=== PATIENT | male | born 1960 ===

== ENCOUNTER 2024-08-26 02:03 | Emergency (ER) | payer BC, OTHER ==
[2024-08-26 03:04] LABS: BASOPHILS PERCENT AUTO 0.2 % (0.0-1.0); EOSINOPHILS ABSOLUTE AUTO 0.1 K/mm3 (0.0-0.4); EOSINOPHILS PERCENT AUTO 0.4 % (0.0-6.0); HEMATOCRIT 47.4 % (42.0-52.0); IMMATURE GRAN ABSOLUTE AUTO 0.07 K/mm3 (0.00-0.05); IMMATURE GRAN PERCENT AUTO 0.5 % (0.0-0.4); LYMPHOCYTES ABSOLUTE AUTO 1.2 K/mm3 (1.0-4.8); MEAN CORPUSCULAR HEMOGLOBIN 29.7 pg (28.0-32.0); MEAN CORPUSCULAR HGB CONC 33.8 g/dl (32.0-36.0); MEAN CORPUSCULAR VOLUME 88.1 fl (83.0-99.0); MEAN PLATELET VOLUME 10.4 fl (9.4-12.4); MONOCYTES ABSOLUTE AUTO 1.6 K/mm3 (0.0-0.8); MONOCYTES PERCENT AUTO 10.6 % (0.0-8.0); NEUTROPHILS ABSOLUTE AUTO 12.3 K/mm3 (1.8-7.7); NEUTROPHILS PERCENT AUTO 80.3 % (41.0-71.0); PLATELET COUNT,PLT 188 K/mm3 (150-400); RED BLOOD CELL COUNT 5.38 M/mm3 (4.52-5.90); WHITE BLOOD CELL COUNT,WBC 15.33 K/mm3 (3.9-11.3)
[2024-08-26] MEDS: Sulfamethoxazole/Trimethoprim 800-160 MG Tab PO ONE (03:07)
[2024-08-26] MEDS: cefTRIAXone 1 GM Vial IVPUSH ONE (03:07)
[2024-08-26] MEDS: Sodium Chloride 0.9% 10 ML Syringe FLUSH PRN (03:07)
[2024-08-26] MEDS: Lidocaine 1% 10 ML MDV INJECT ONE (03:08)
[2024-08-26 03:32] LABS: A/G RATIO 1.1 (1-2); ALBUMIN 3.7 g/dl (3.4-5.0); ANION GAP 13.1 (5-15); BILIRUBIN TOTAL 0.9 mg/dL (0.2-1.0); BUN/CREATININE RATIO 15.5 (14-18); C-REACTIVE PROTEIN 4.69 mg/dL (<0.30); CALCIUM 8.6 mg/dL (8.5-10.1); CREATININE 1.1 mg/dL (0.7-1.3); EST CRCL DRUG DOSING (CG) 78.69 mL/min; POTASSIUM,K 4.1 mEq/L (3.5-5.1); PROTEIN TOTAL,TP 7.1 g/dl (6.4-8.2)
[2024-08-26] MEDS: Ketorolac 30 MG/ML SDV IVPUSH ONE (04:55)
[2024-08-26] MEDS: Morphine 4 MG/ML Syringe IVPUSH ONE (05:01)
== END 2024-08-26 05:25 | disposition home or self-care (01) ==
LOC: JD.ED 02:03
DX: L02.511 Cutaneous abscess of right hand (principal); L03.113 Cellulitis of right upper limb; Z79.899 Other long term (current) drug therapy
CPT/HCPCS: 26010; 36415; 80053; 84550; 85025; 86140; 87070; 87075; 87205; 96374; 96375; 99283; A9270; J0696; J2270; J3490

== ENCOUNTER 2024-08-26 22:26 | Emergency (ER) | payer OTHER ==
[2024-08-26] MEDS ORDERED: Sodium Chloride 0.9% 10 ML Syringe FLUSH PRN (23:05)
[2024-08-26 23:27] LABS: BASOPHILS PERCENT AUTO 0.2 % (0.0-1.0); EOSINOPHILS ABSOLUTE AUTO 0.2 K/mm3 (0.0-0.4); EOSINOPHILS PERCENT AUTO 0.9 % (0.0-6.0); HEMATOCRIT 44.4 % (42.0-52.0); HEMOGLOBIN 14.9 gm/dl (14.0-18.0); IMMATURE GRAN ABSOLUTE AUTO 0.06 K/mm3 (0.00-0.05); IMMATURE GRAN PERCENT AUTO 0.4 % (0.0-0.4); LYMPHOCYTES ABSOLUTE AUTO 1.3 K/mm3 (1.0-4.8); LYMPHOCYTES PERCENT AUTO 7.8 % (24.0-44.0); MEAN CORPUSCULAR HEMOGLOBIN 29.6 pg (28.0-32.0); MEAN CORPUSCULAR HGB CONC 33.6 g/dl (32.0-36.0); MEAN CORPUSCULAR VOLUME 88.3 fl (83.0-99.0); MEAN PLATELET VOLUME 10.4 fl (9.4-12.4); MONOCYTES ABSOLUTE AUTO 1.7 K/mm3 (0.0-0.8); MONOCYTES PERCENT AUTO 10.1 % (0.0-8.0); NEUTROPHILS ABSOLUTE AUTO 13.4 K/mm3 (1.8-7.7); NEUTROPHILS PERCENT AUTO 80.6 % (41.0-71.0); PLATELET COUNT,PLT 177 K/mm3 (150-400); RED BLOOD CELL COUNT 5.03 M/mm3 (4.52-5.90); WHITE BLOOD CELL COUNT,WBC 16.65 K/mm3 (3.9-11.3)
[2024-08-26] MEDS: fentaNYL 100 MCG/2 ML SDV IVPUSH ONE (23:34)
[2024-08-26] MEDS: Sodium Chloride 0.9% 1,000 ML IV ONE (23:35)
[2024-08-26] MEDS: Piperacillin/Tazobactam 4.5 GM in Sodium Chloride 0.9% 100 ML IV ONE (23:49)
[2024-08-26 23:50] LABS: LACTIC ACID 0.5 mmol/L (0.4-2.0)
[2024-08-26 23:57] LABS: ALBUMIN 3.6 g/dl (3.4-5.0); ANION GAP 11.3 (5-15); BILIRUBIN TOTAL 0.6 mg/dL (0.2-1.0); CALCIUM 8.9 mg/dL (8.5-10.1); CREATININE 1.2 mg/dL (0.7-1.3); EST CRCL DRUG DOSING (CG) 65.9 mL/min; POTASSIUM,K 4.3 mEq/L (3.5-5.1); PROTEIN TOTAL,TP 7.1 g/dl (6.4-8.2)
[2024-08-27] MEDS: HYDROmorphone 1 MG/ML Syringe IVPUSH ONE (00:30)
[2024-08-27] MEDS: VANCOmycin 1 GM in Sodium Chloride 0.9% 250 ML IV SCH (00:37)
== END 2024-08-27 01:50 ==
LOC: JD.ED 22:26
DX: L03.113 Cellulitis of right upper limb (principal); F17.210 Nicotine dependence, cigarettes, uncomplicated; Z79.899 Other long term (current) drug therapy
CPT/HCPCS: 36415; 73130; 80053; 83605; 85025; 87040; 96365; 96367; 96375; 99284; J1171; J2543; J3010; J7030